=== PATIENT | male | born 1950 | race Caucasian/White ===

== ENCOUNTER 2019-11-02 09:43 | Inpatient (IN) ==
[2019-11-02] MEDS ORDERED: Ondansetron ODT 4 MG TAB.RAPDIS SL PRN (17:59)
[2019-11-02] MEDS ORDERED: MOM Conc 10 ML UD.LIQ PO PRN (19:00)
[2019-11-02] MEDS ORDERED: Ipratropium/Albuterol Neb 3 ML ONE (19:21)
[2019-11-02] MEDS: Ipratropium/Albuterol Neb 3 ML IH SCH ×2 (19:28→22:02)
[2019-11-02] MEDS: Topiramate 100 MG TABLET PO SCH (22:39)
[2019-11-02] MEDS: *HR* HYDROcodone/Acet 5/325 mg TABLET PO PRN (22:39)
[2019-11-02] MEDS: OXcarbazepine 150 MG TABLET PO SCH (22:39)
[2019-11-03] MEDS: Ipratropium/Albuterol Neb 3 ML IH SCH ×4 (03:01→22:24)
[2019-11-03 05:53] LABS: Basophils % 0.4 %; Eosinophils # 0.2 K/mcL (0.0-0.6); Eosinophils % 3.3 %; Hematocrit 35.8 % (37.5-50.1); Hemoglobin 12.3 g/dL (12.9-16.9); Immature Granulocytes % 0.4 % (0-4); Lymphocytes # 1.2 K/mcL (0.6-4.6); Lymphocytes % 16.6 %; Mean Corpuscular HGB Conc 34.4 g/dL (31.6-35.5); Mean Corpuscular Hemoglobin 31.1 pg (28.0-33.3); Mean Corpuscular Volume 90.6 fL (83.0-100.0); Mean Platelet Volume 8.8 fL (9.4-12.4); Monocytes # 0.7 K/mcL (0.0-1.3); Monocytes % 9.8 %; Neutrophils # 4.8 K/mcL (1.6-8.9); Platelet Count 138 K/mcL (140-400); Red Blood Count 3.95 M/mcL (4.19-5.50); Red Cell Distribution Width 12.8 % (11.5-14.5); Segmented Neutrophils % 69.5 %; White Blood Count 6.9 K/mcL (4.3-11.1)
[2019-11-03 06:10] LABS: Alanine Aminotransferase 11 Units/L (7-52); Albumin 3.4 g/dL (3.5-5.7); Albumin/Globulin Ratio 1.6 (1.1-2.2); Alkaline Phosphatase 50 Units/L (34-104); Aspartate Amino Transferase 11 Units/L (13-39); BUN/Creatinine Ratio 13 (6-26); Bilirubin,Total 0.6 mg/dL (0.3-1.0); Blood Urea Nitrogen 14 mg/dL (8-23); Calcium 8.4 mg/dL (8.6-10.3); Carbon Dioxide 22 mEq/L (23-29); Chloride 107 mEq/L (98-107); Globulin 2.1 g/dL (2.4-3.5); Glucose 119 mg/dL (70-105); Magnesium 1.9 mg/dL (1.6-2.6); Osmolality,Calculated 286 (280-300); Potassium 3.3 mEq/L (3.5-5.1); Sodium 137 mEq/L (136-145); Total Protein 5.5 g/dL (6.4-8.9); eGFR For African Americans > 60 (> 60); eGFR For Non-African Americans > 60 (> 60)
[2019-11-03] MEDS: OXcarbazepine 150 MG TABLET PO SCH ×2 (08:20→22:17)
[2019-11-03] MEDS: Cholecalciferol (D-3) 1,000 UNIT (25MCG) TABLET PO SCH (08:21)
[2019-11-03] MEDS: Topiramate 100 MG TABLET PO SCH ×2 (08:21→22:16)
[2019-11-03] MEDS: Divalproex (24 HR) 250 MG TABLET PO SCH (08:21)
[2019-11-03] MEDS: *HR* Metformin 500 MG TABLET PO SCH ×2 (08:21→17:39)
[2019-11-03] MEDS: Furosemide 40 MG TABLET PO SCH (08:21)
[2019-11-03] MEDS: *HR* HYDROcodone/Acet 5/325 mg TABLET PO PRN (22:21)
[2019-11-04] MEDS: *HR* HYDROcodone/Acet 5/325 mg TABLET PO PRN ×3 (03:42→22:33)
[2019-11-04] MEDS: Ipratropium/Albuterol Neb 3 ML IH SCH ×4 (04:23→21:45)
[2019-11-04] MEDS: Cholecalciferol (D-3) 1,000 UNIT (25MCG) TABLET PO SCH (09:55)
[2019-11-04] MEDS: Divalproex (24 HR) 250 MG TABLET PO SCH (09:55)
[2019-11-04] MEDS: *HR* Metformin 500 MG TABLET PO SCH ×2 (09:55→19:22)
[2019-11-04] MEDS: Topiramate 100 MG TABLET PO SCH ×2 (09:55→22:32)
[2019-11-04] MEDS: Furosemide 40 MG TABLET PO SCH (09:55)
[2019-11-04] MEDS: OXcarbazepine 150 MG TABLET PO SCH ×2 (11:04→22:32)
[2019-11-04] MEDS: FLUTICASONE FUROATE PO SCH (11:05)
[2019-11-04] MEDS: VILANTEROL PO SCH (11:05)
[2019-11-04] MEDS ORDERED: Bisacodyl 10 MG RECTAL SUPPOSITORY RC PRN (19:56)
[2019-11-05] MEDS: Ipratropium/Albuterol Neb 3 ML IH SCH ×3 (04:05→15:00)
[2019-11-05 05:26] LABS: Hematocrit 38.2 % (37.5-50.1); Hemoglobin 13.1 g/dL (12.9-16.9); Mean Corpuscular HGB Conc 34.3 g/dL (31.6-35.5); Mean Corpuscular Hemoglobin 31.5 pg (28.0-33.3); Mean Corpuscular Volume 91.8 fL (83.0-100.0); Platelet Count 169 K/mcL (140-400); Red Blood Count 4.16 M/mcL (4.19-5.50); Red Cell Distribution Width 13.2 % (11.5-14.5); White Blood Count 8.2 K/mcL (4.3-11.1)
[2019-11-05 05:39] LABS: BUN/Creatinine Ratio 13 (6-26); Blood Urea Nitrogen 16 mg/dL (8-23); Carbon Dioxide 24 mEq/L (23-29); Chloride 107 mEq/L (98-107); Glucose 109 mg/dL (70-105); Magnesium 2.2 mg/dL (1.6-2.6); Osmolality,Calculated 292 (280-300); Potassium 3.9 mEq/L (3.5-5.1); Sodium 140 mEq/L (136-145); eGFR For African Americans > 60 (> 60); eGFR For Non-African Americans 58 (> 60)
[2019-11-05] MEDS: Furosemide 40 MG TABLET PO SCH (08:51)
[2019-11-05] MEDS: Topiramate 100 MG TABLET PO SCH ×2 (08:51→21:07)
[2019-11-05] MEDS: Divalproex (24 HR) 250 MG TABLET PO SCH (08:51)
[2019-11-05] MEDS: Cholecalciferol (D-3) 1,000 UNIT (25MCG) TABLET PO SCH (08:51)
[2019-11-05] MEDS: OXcarbazepine 150 MG TABLET PO SCH ×2 (08:51→21:05)
[2019-11-05] MEDS: *HR* Metformin 500 MG TABLET PO SCH ×2 (08:51→17:23)
[2019-11-05] MEDS: *HR* HYDROcodone/Acet 5/325 mg TABLET PO PRN ×2 (09:02→21:06)
[2019-11-05] MEDS ORDERED: Ipratropium/Albuterol Neb 3 ML IH PRN (15:13)
[2019-11-05] MEDS ORDERED: Lactulose Oral Soln 20 GM/30 ML UDC PO PRN (15:42)
[2019-11-05] MEDS: VILANTEROL PO SCH (17:28)
[2019-11-05] MEDS: FLUTICASONE FUROATE PO SCH (17:28)
[2019-11-05] MEDS: polyethylene glycoL 3350 17 GM POWD.PACK PO SCH (17:28)
[2019-11-05] MEDS: Sennosides/Docusate Sodium TABLET PO SCH (21:06)
[2019-11-06] MEDS ORDERED: Melatonin 3 MG TABLET PO ONE (01:58)
[2019-11-06] MEDS: *HR* HYDROcodone/Acet 5/325 mg TABLET PO PRN ×4 (02:12→21:17)
[2019-11-06] MEDS: Sennosides/Docusate Sodium TABLET PO SCH ×2 (08:21→21:16)
[2019-11-06] MEDS: Furosemide 40 MG TABLET PO SCH (08:21)
[2019-11-06] MEDS: OXcarbazepine 150 MG TABLET PO SCH ×2 (08:21→21:16)
[2019-11-06] MEDS: Topiramate 100 MG TABLET PO SCH ×2 (08:21→21:16)
[2019-11-06] MEDS: *HR* Metformin 500 MG TABLET PO SCH ×2 (08:21→17:58)
[2019-11-06] MEDS: Divalproex (24 HR) 250 MG TABLET PO SCH (08:21)
[2019-11-06] MEDS: Cholecalciferol (D-3) 1,000 UNIT (25MCG) TABLET PO SCH (08:21)
[2019-11-06] MEDS: polyethylene glycoL 3350 17 GM POWD.PACK PO SCH (08:22)
[2019-11-06] MEDS: VILANTEROL PO SCH ×2 (09:45→13:15)
[2019-11-06] MEDS: FLUTICASONE FUROATE PO SCH ×2 (09:45→13:15)
[2019-11-07] MEDS: *HR* HYDROcodone/Acet 5/325 mg TABLET PO PRN ×3 (05:10→22:15)
[2019-11-07] MEDS: *HR* Metformin 500 MG TABLET PO SCH ×2 (08:07→17:12)
[2019-11-07] MEDS: Divalproex (24 HR) 250 MG TABLET PO SCH (08:07)
[2019-11-07] MEDS: Topiramate 100 MG TABLET PO SCH ×2 (08:07→20:29)
[2019-11-07] MEDS: OXcarbazepine 150 MG TABLET PO SCH ×2 (08:07→20:29)
[2019-11-07] MEDS: Cholecalciferol (D-3) 1,000 UNIT (25MCG) TABLET PO SCH (08:08)
[2019-11-07] MEDS: polyethylene glycoL 3350 17 GM POWD.PACK PO SCH (08:08)
[2019-11-07] MEDS: Furosemide 40 MG TABLET PO SCH (08:08)
[2019-11-07] MEDS: Sennosides/Docusate Sodium TABLET PO SCH ×2 (08:08→20:29)
[2019-11-07] MEDS: FLUTICASONE FUROATE PO SCH ×2 (10:38→10:42)
[2019-11-07] MEDS: VILANTEROL PO SCH ×2 (10:38→10:42)
[2019-11-08] MEDS: OXcarbazepine 150 MG TABLET PO SCH ×2 (08:19→20:49)
[2019-11-08] MEDS: *HR* Metformin 500 MG TABLET PO SCH ×2 (08:20→16:11)
[2019-11-08] MEDS: Divalproex (24 HR) 250 MG TABLET PO SCH (08:20)
[2019-11-08] MEDS: polyethylene glycoL 3350 17 GM POWD.PACK PO SCH (08:21)
[2019-11-08] MEDS: Topiramate 100 MG TABLET PO SCH ×2 (08:22→20:49)
[2019-11-08] MEDS: Sennosides/Docusate Sodium TABLET PO SCH ×2 (08:22→20:48)
[2019-11-08] MEDS: Cholecalciferol (D-3) 1,000 UNIT (25MCG) TABLET PO SCH (08:22)
[2019-11-08] MEDS: Furosemide 40 MG TABLET PO SCH (08:22)
[2019-11-08] MEDS: VILANTEROL PO SCH (08:23)
[2019-11-08] MEDS: FLUTICASONE FUROATE PO SCH (08:23)
[2019-11-08] MEDS: *HR* HYDROcodone/Acet 5/325 mg TABLET PO PRN (23:41)
[2019-11-09 05:37] LABS: Hemoglobin 13.8 g/dL (12.9-16.9); Mean Corpuscular HGB Conc 34.5 g/dL (31.6-35.5); Mean Corpuscular Hemoglobin 31.4 pg (28.0-33.3); Mean Corpuscular Volume 91.1 fL (83.0-100.0); Mean Platelet Volume 9.1 fL (9.4-12.4); Platelet Count 191 K/mcL (140-400); Red Blood Count 4.39 M/mcL (4.19-5.50); Red Cell Distribution Width 13.1 % (11.5-14.5); White Blood Count 7.5 K/mcL (4.3-11.1)
[2019-11-09 05:52] LABS: Albumin 3.7 g/dL (3.5-5.7); Albumin/Globulin Ratio 1.7 (1.1-2.2); Bilirubin,Total 0.5 mg/dL (0.3-1.0); Calcium 8.9 mg/dL (8.6-10.3); Globulin 2.2 g/dL (2.4-3.5); Magnesium 2.2 mg/dL (1.6-2.6); Potassium 3.5 mEq/L (3.5-5.1); Total Protein 5.9 g/dL (6.4-8.9)
[2019-11-09] MEDS: Sennosides/Docusate Sodium TABLET PO SCH ×2 (08:02→20:20)
[2019-11-09] MEDS: Cholecalciferol (D-3) 1,000 UNIT (25MCG) TABLET PO SCH (08:02)
[2019-11-09] MEDS: Furosemide 40 MG TABLET PO SCH (08:02)
[2019-11-09] MEDS: OXcarbazepine 150 MG TABLET PO SCH ×2 (08:02→20:20)
[2019-11-09] MEDS: VILANTEROL PO SCH (08:02)
[2019-11-09] MEDS: Topiramate 100 MG TABLET PO SCH ×2 (08:02→20:20)
[2019-11-09] MEDS: *HR* Metformin 500 MG TABLET PO SCH ×2 (08:02→16:29)
[2019-11-09] MEDS: Divalproex (24 HR) 250 MG TABLET PO SCH (08:02)
[2019-11-09] MEDS: FLUTICASONE FUROATE PO SCH (08:02)
[2019-11-09] MEDS: polyethylene glycoL 3350 17 GM POWD.PACK PO SCH (08:03)
[2019-11-09] MEDS: *HR* HYDROcodone/Acet 5/325 mg TABLET PO PRN (13:14)
[2019-11-10] MEDS: Divalproex (24 HR) 250 MG TABLET PO SCH (08:20)
[2019-11-10] MEDS: *HR* Metformin 500 MG TABLET PO SCH ×2 (08:20→16:38)
[2019-11-10] MEDS: OXcarbazepine 150 MG TABLET PO SCH ×2 (08:20→20:44)
[2019-11-10] MEDS: Topiramate 100 MG TABLET PO SCH ×2 (08:20→20:43)
[2019-11-10] MEDS: Cholecalciferol (D-3) 1,000 UNIT (25MCG) TABLET PO SCH (08:20)
[2019-11-10] MEDS: Furosemide 40 MG TABLET PO SCH (08:20)
[2019-11-10] MEDS: Sennosides/Docusate Sodium TABLET PO SCH ×2 (08:21→20:58)
[2019-11-10] MEDS: polyethylene glycoL 3350 17 GM POWD.PACK PO SCH (08:21)
[2019-11-10] MEDS: FLUTICASONE FUROATE PO SCH (08:24)
[2019-11-10] MEDS: VILANTEROL PO SCH (08:24)
[2019-11-10] MEDS: *HR* HYDROcodone/Acet 5/325 mg TABLET PO PRN (20:44)
[2019-11-10] MEDS: Melatonin 3 MG TABLET PO PRN (21:58)
[2019-11-11] MEDS: OXcarbazepine 150 MG TABLET PO SCH ×2 (08:29→20:03)
[2019-11-11] MEDS: Topiramate 100 MG TABLET PO SCH ×2 (08:29→20:04)
[2019-11-11] MEDS: polyethylene glycoL 3350 17 GM POWD.PACK PO SCH (08:30)
[2019-11-11] MEDS: Furosemide 40 MG TABLET PO SCH (08:30)
[2019-11-11] MEDS: Divalproex (24 HR) 250 MG TABLET PO SCH (08:30)
[2019-11-11] MEDS: Cholecalciferol (D-3) 1,000 UNIT (25MCG) TABLET PO SCH (08:30)
[2019-11-11] MEDS: *HR* Metformin 500 MG TABLET PO SCH ×2 (08:30→17:13)
[2019-11-11] MEDS: Sennosides/Docusate Sodium TABLET PO SCH ×2 (08:31→21:28)
[2019-11-11] MEDS: VILANTEROL PO SCH (08:35)
[2019-11-11] MEDS: FLUTICASONE FUROATE PO SCH (08:35)
[2019-11-11] MEDS: *HR* HYDROcodone/Acet 5/325 mg TABLET PO PRN ×2 (08:47→20:04)
[2019-11-11 11:55] LABS: Bilirubin,Urine Negative (Negative); Blood,Urine Negative (Negative); Clarity,Urine Clear (Clear); Color,Urine Yellow (Yellow); Glucose,Urine (UA) Normal (Normal); Ketones,Urine Negative (Negative); Leukocyte Esterase,Urine Negative (Negative); Nitrite,Urine Negative (Negative); Protein,Urine Negative (Neg-Trace); Urobilinogen,Urine Normal (Normal)
[2019-11-11] MEDS: Melatonin 3 MG TABLET PO PRN (20:04)
[2019-11-12] MEDS: *HR* HYDROcodone/Acet 5/325 mg TABLET PO PRN ×2 (04:25→17:13)
[2019-11-12] MEDS: Divalproex (24 HR) 250 MG TABLET PO SCH (07:48)
[2019-11-12] MEDS: Furosemide 40 MG TABLET PO SCH (07:48)
[2019-11-12] MEDS: Topiramate 100 MG TABLET PO SCH ×2 (07:48→20:47)
[2019-11-12] MEDS: *HR* Metformin 500 MG TABLET PO SCH ×2 (07:48→17:13)
[2019-11-12] MEDS: Sennosides/Docusate Sodium TABLET PO SCH ×2 (07:48→20:49)
[2019-11-12] MEDS: polyethylene glycoL 3350 17 GM POWD.PACK PO SCH (07:48)
[2019-11-12] MEDS: Cholecalciferol (D-3) 1,000 UNIT (25MCG) TABLET PO SCH (07:48)
[2019-11-12] MEDS: OXcarbazepine 150 MG TABLET PO SCH ×2 (07:49→20:47)
[2019-11-12] MEDS: VILANTEROL PO SCH (13:28)
[2019-11-12] MEDS: FLUTICASONE FUROATE PO SCH (13:28)
[2019-11-12] MEDS ORDERED: Acetaminophen 325 MG TABLET PO PRN (18:16)
[2019-11-13] MEDS: Divalproex (24 HR) 250 MG TABLET PO SCH (08:38)
[2019-11-13] MEDS: Furosemide 40 MG TABLET PO SCH (08:38)
[2019-11-13] MEDS: *HR* Metformin 500 MG TABLET PO SCH ×2 (08:38→16:48)
[2019-11-13] MEDS: Topiramate 100 MG TABLET PO SCH ×2 (08:38→20:17)
[2019-11-13] MEDS: Cholecalciferol (D-3) 1,000 UNIT (25MCG) TABLET PO SCH (08:38)
[2019-11-13] MEDS: Sennosides/Docusate Sodium TABLET PO SCH ×2 (08:38→20:18)
[2019-11-13] MEDS: OXcarbazepine 150 MG TABLET PO SCH ×2 (08:38→20:17)
[2019-11-13] MEDS: FLUTICASONE FUROATE PO SCH (08:39)
[2019-11-13] MEDS: VILANTEROL PO SCH (08:39)
[2019-11-13] MEDS: polyethylene glycoL 3350 17 GM POWD.PACK PO SCH (08:39)
[2019-11-13] MEDS: *HR* HYDROcodone/Acet 5/325 mg TABLET PO PRN (13:10)
[2019-11-14] MEDS: *HR* Metformin 500 MG TABLET PO SCH (07:49)
[2019-11-14] MEDS: OXcarbazepine 150 MG TABLET PO SCH (07:49)
[2019-11-14] MEDS: polyethylene glycoL 3350 17 GM POWD.PACK PO SCH (07:50)
[2019-11-14] MEDS: Sennosides/Docusate Sodium TABLET PO SCH (07:50)
[2019-11-14] MEDS: Cholecalciferol (D-3) 1,000 UNIT (25MCG) TABLET PO SCH (07:50)
[2019-11-14] MEDS: Divalproex (24 HR) 250 MG TABLET PO SCH (07:50)
[2019-11-14] MEDS: Topiramate 100 MG TABLET PO SCH (07:50)
[2019-11-14] MEDS: Furosemide 40 MG TABLET PO SCH (07:50)
[2019-11-14] MEDS: FLUTICASONE FUROATE PO SCH (07:52)
[2019-11-14] MEDS: VILANTEROL PO SCH (07:52)
[2019-11-14 08:44] LABS: Basophils # 0.1 K/mcL (0.0-0.2); Basophils % 0.6 %; Eosinophils # 0.2 K/mcL (0.0-0.6); Hematocrit 43.6 % (37.5-50.1); Hemoglobin 14.8 g/dL (12.9-16.9); Immature Granulocytes % 0.5 % (0-4); Lymphocytes % 12.1 %; Mean Corpuscular HGB Conc 33.9 g/dL (31.6-35.5); Mean Corpuscular Hemoglobin 31.4 pg (28.0-33.3); Mean Corpuscular Volume 92.6 fL (83.0-100.0); Mean Platelet Volume 9.5 fL (9.4-12.4); Monocytes # 0.6 K/mcL (0.0-1.3); Monocytes % 7.3 %; Neutrophils # 6.7 K/mcL (1.6-8.9); Platelet Count 198 K/mcL (140-400); Red Blood Count 4.71 M/mcL (4.19-5.50); Red Cell Distribution Width 13.2 % (11.5-14.5); Segmented Neutrophils % 77.5 %; White Blood Count 8.6 K/mcL (4.3-11.1)
[2019-11-14 09:04] LABS: Calcium 9.2 mg/dL (8.6-10.3); Potassium 3.9 mEq/L (3.5-5.1)
[2019-11-14] MEDS ORDERED: FLU Vac QV 20-21 (6Month+)/PF 0.5 ML SYRINGE IM ONE (09:38)
== END 2019-11-14 10:35 | disposition home health service (06) | DRG 57 ==
LOC: INPGRE 17:15
PROVIDERS: ADMIT Family Medicine; ATTEND Family Medicine